=== PATIENT | female | born 1990 ===

== ENCOUNTER 2019-12-22 08:59 | Inpatient (IN) | payer MEDICAID ==
[~2019-12-22] VITALS: Ht 167.6 cm; Wt 68.6 kg
--- NOTE | 2019-12-22 09:04 | NUR ---
THIS IS A 29 YO F BIB EMS FROM [facility] W/ C/O RUQ/R FLANK/BACK PAIN. DENIES N/V/D. PER EMS PT HAS BEEN DX W/ PANCREATITIS AND GALLSTONES. PT IS 2 MONTHS POST . PER EMS PT RECEIVED 1MG DILAUDID, 4MG ZOFRAN, REGLAN AND 1L NS AT FACILITY PRIOR TO TRANSFER, RECEIVED NOTHING IN ROUTE. 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 PT REPORTS PAIN NOW 06/26. VSS, NADN. PT CONNECTED TO MONITORING. RESTING ON GURNEY W/ CALL LIGHT IN REACH AND SIDE RAILS UPX2. PARMINDER FLOWERS AT BEDSIDE FOR ED EVAL.
--- NOTE | 2019-12-22 09:12 | NUR ---
ATTEMPT TO CALL POST FOR BREAST PUMP, NO ANSWER.
--- NOTE | 2019-12-22 09:14 | NUR ---
SPOKE W/ NURSE, WILL BRING BREAST PUMP DOWN.
--- NOTE | 2019-12-22 09:20 | NUR ---
OK TO SPEAK W/ GM (PTS ) [phone] REGARDING UPDATES. GM STATES HE IS ABOUT 3 HOURS AWAY. INFORMED WE WILL CALL HIM IF ANYTHING CHANGES.
--- NOTE | 2019-12-22 09:27 | NUR ---
BREAST PUMP DELIVERED.
[2019-12-22] MEDS ORDERED: PRENATAL PO (09:29)
--- NOTE | 2019-12-22 09:29 | NUR ---
PT REPORTS LAST PO FOOD 12/20 1800, LAST PO DRINK 12/21 0300.
--- NOTE | 2019-12-22 09:40 | NUR ---
ACCORDING TO RECORDS FROM [facility] LIPASE THIS MORNING WAS [phone].
--- NOTE | 2019-12-22 09:43 | NUR ---
US IN ROOM.
--- NOTE | 2019-12-22 10:00 | NUR ---
MRI FORM COMPLETED AND FAXED TO [phone].
--- NOTE | 2019-12-22 10:01 | NUR ---
PT BRADYCARDIC IN THE 40'S DURING US. UPDATED, OK TO PROCEED W/ MRI AT THIS TIME.
--- NOTE | 2019-12-22 10:08 | NUR ---
PT AMBULATED TO THE BR W/ A STEADY GAIT.
--- NOTE | 2019-12-22 10:13 | NUR ---
PT TO MRI.
--- NOTE | 2019-12-22 10:36 | NUR ---
REPORT GIVEN TO JANET MARTINEZ.
[2019-12-22 11:59] VITALS: BP 101/69
[2019-12-22] MEDS ORDERED: HYDROmorphone 1 MG/ML, 1ML INJ IV PRN (12:30)
[2019-12-22] MEDS ORDERED: ONDANSETRON 2MG/ML, 2ML IVPush PRN (12:30)
[2019-12-22] MEDS: SODIUM CHLORIDE 0.9% 1,000 ML IV SCH ×2 (12:34→22:36)
[2019-12-22 13:29] LABS: ALANINE AMINOTRANSFERASE 805 U/L (12-78); ALBUMIN 3.5 g/dL (3.4-5.0); ANION GAP 5 mmol/L (5-15); CALCIUM 8.6 mg/dL (8.5-10.1); CHLORIDE 113 mmol/L (98-107); CREATININE 0.82 mg/dL (0.55-1.02)
[2019-12-22 13:34] LABS: ALKALINE PHOSPHATASE 235 U/L (45-117); BILIRUBIN,TOTAL 0.6 mg/dL (0.2-1.0)
[2019-12-22 19:38] VITALS: BP 97/60
[2019-12-23 00:42] VITALS: BP 105/68
[2019-12-23 04:40] LABS: BASOPHILS # (AUTO) 0.04 x10^3/uL (0-0.1); BASOPHILS % (AUTO) 1 % (0-1); EOSINOPHILS # (AUTO) 0.04 x10^3/uL (0-0.4); EOSINOPHILS % (AUTO) 1 % (1-7); LYMPHOCYTES # (AUTO) 1.45 x10^3/uL (1-3.4); LYMPHOCYTES % (AUTO) 42 % (22-44); MD NO; MEAN CORPUSCULAR HEMOGLOBIN 28.7 pg (27.0-34.8); MEAN CORPUSCULAR HGB CONC 32.8 g/dL (32.4-35.8); MEAN PLATELET VOLUME 8.5 fL (7.4-10.4); MONOCYTES % (AUTO) 9 % (2-9); NEUTROPHILS # (AUTO) 1.63 x10^3/uL (1.8-6.8); NEUTROPHILS % (AUTO) 47 % (42-75); PLATELET COUNT 180 x10^3/uL (130-400); RED BLOOD COUNT 4.15 x10^6/uL (3.82-5.3); RED CELL DISTRIBUTION WIDTH 14.5 % (9.6-15.2)
[2019-12-23 04:51] LABS: ALANINE AMINOTRANSFERASE 583 U/L (12-78); ALBUMIN 3.3 g/dL (3.4-5.0); ANION GAP 7 mmol/L (5-15); CALCIUM 8.1 mg/dL (8.5-10.1); CHLORIDE 113 mmol/L (98-107); CREATININE 0.84 mg/dL (0.55-1.02)
[2019-12-23 04:53] LABS: ALKALINE PHOSPHATASE 204 U/L (45-117); BILIRUBIN,TOTAL 0.7 mg/dL (0.2-1.0); TOTAL PROTEIN 6.5 g/dL (6.4-8.2)
[2019-12-23 06:18] VITALS: BP 104/59
[2019-12-23] MEDS: SODIUM CHLORIDE 0.9% 1,000 ML IV SCH (08:20)
[2019-12-23 11:58] VITALS: BP 103/64
[2019-12-23] MEDS ORDERED: BUPIVACAINE/PF 0.5% ONE (12:27)
[2019-12-23] MEDS ORDERED: EPINEPHRINE 1 MG/ML, 1ML ONE (12:27)
[2019-12-23] MEDS ORDERED: FENTANYL PF 250 MCG/5ML ONE (12:39)
[2019-12-23] MEDS ORDERED: MIDAZOLAM 1 MG/ML, 2ML ONE (12:39)
[2019-12-23] MEDS ORDERED: CHLORHEXIDINE 15 ML UDC ONE (12:52)
[2019-12-23] MEDS ORDERED: CHLORHEXIDINE 15 ML UDC MM ONE (13:00)
[2019-12-23] MEDS ORDERED: PROPOFOL 10 MG/ML, 20ML ONE (13:00)
[2019-12-23] MEDS ORDERED: SUCCINYLCHOLINE 20 MG/ML, 10ML ONE (13:00)
[2019-12-23] MEDS ORDERED: ONDANSETRON 2MG/ML, 2ML ONE (13:00)
[2019-12-23] MEDS ORDERED: ROCURONIUM 10 MG/ML,10ML ONE (13:00)
[2019-12-23] MEDS ORDERED: DEXAMETHASONE 4 MG/ML, 1ML ONE (13:00)
[2019-12-23] MEDS ORDERED: SUGAMMADEX 200 MG/2 ML IVPush ONE (13:00)
[2019-12-23] MEDS ORDERED: KETOROLAC 30 MG/1 ML ONE (13:00)
[2019-12-23] MEDS ORDERED: CEFAZOLIN 1,000 MG ONE (13:00)
[2019-12-23] MEDS ORDERED: OMNIPAQUE 350 MG/ML, 50 ML BOTTLE INJ ONE (13:24)
[2019-12-23] MEDS ORDERED: FENTANYL PF 100 MCG/2ML ONE ×2 (13:35→14:20)
[2019-12-23] MEDS ORDERED: DIPHENHYDRAMINE 50 MG/ML, 1ML IVPush PRN ×2 (14:00→16:00)
[2019-12-23] MEDS ORDERED: PROMETHAZINE 12.5 MG SUPP PR PRN (14:00)
[2019-12-23] MEDS ORDERED: hydrALAzine 20 MG/ML, 1ML IV PRN (14:00)
[2019-12-23] MEDS ORDERED: LABETALOL 5MG/ML, 20ML IV PRN (14:00)
[2019-12-23] MEDS ORDERED: MEPERIDINE/PF 25MG/0.5ML IVPush PRN (14:00)
[2019-12-23] MEDS ORDERED: ALBUTEROL SULFATE 2.5 MG/3 ML NPPB PRN (14:00)
[2019-12-23] MEDS ORDERED: DIAZEPAM 5 MG/ML, 2ML IVPush PRN (14:00)
[2019-12-23] MEDS ORDERED: HYDROmorphone 1 MG/ML, 1ML INJ IVPush PRN (14:00)
[2019-12-23] MEDS ORDERED: MIDAZOLAM 1 MG/ML, 2ML IV PRN (14:00)
[2019-12-23] MEDS ORDERED: OXYcodone 5 MG/5 ML ORAL.SOL UDC PO PRN ×2 (14:00→16:00)
[2019-12-23] MEDS ORDERED: EPHEDRINE 50 MG/ML, 1ML IVPush PRN (14:00)
[2019-12-23] MEDS ORDERED: PROMETHAZINE 25 MG/ML, 1ML IVPush PRN (14:00)
[2019-12-23] MEDS ORDERED: ONDANSETRON 2MG/ML, 2ML IVPush PRN ×2 (14:00→16:00)
[2019-12-23] MEDS ORDERED: OXYcodone 5 MG/5 ML ORAL.SOL UDC ONE (14:20)
[2019-12-23] MEDS ORDERED: ACETAMINOPHEN 650 MG/20.3 ML UDC ONE (14:20)
[2019-12-23] MEDS: FENTANYL PF 100 MCG/2ML IV PRN ×2 (14:25→14:36)
[2019-12-23] MEDS ORDERED: ACETAMINOPHEN 650 MG/20.3 ML UDC PO PRN (14:30)
[2019-12-23] MEDS ORDERED: KETOROLAC 30 MG/1 ML IV PRN (16:00)
[2019-12-23] MEDS ORDERED: LACTATED RINGERS 1,000 ML IV SCH (16:00)
[2019-12-23] MEDS ORDERED: HYDROmorphone 2 MG/ML, 1ML IV PRN (16:00)
[2019-12-23 19:47] VITALS: BP 109/64
[2019-12-23] MEDS ORDERED: ACETAMINOPHEN 650 MG/20.3 ML UDC PO SCH (20:00)
[2019-12-23] MEDS: ACETAMINOPHEN 500 MG TABLET PO SCH (20:31)
[2019-12-24 02:20] VITALS: BP 99/62
[2019-12-24] MEDS: ACETAMINOPHEN 500 MG TABLET PO SCH ×2 (02:23→08:27)
[2019-12-24] MEDS ORDERED: ENOXAPARIN 40 MG/0.4 ML SQ SCH (06:00)
[2019-12-24 07:00] LABS: BASOPHILS # (AUTO) 0.02 x10^3/uL (0-0.1); BASOPHILS % (AUTO) 0 % (0-1); EOSINOPHILS % (AUTO) 0 % (1-7); LYMPHOCYTES # (AUTO) 1.15 x10^3/uL (1-3.4); LYMPHOCYTES % (AUTO) 16 % (22-44); MD NO; MEAN CORPUSCULAR HEMOGLOBIN 28.2 pg (27.0-34.8); MEAN PLATELET VOLUME 8.8 fL (7.4-10.4); MONOCYTES # (AUTO) 0.58 x10^3/uL (0.2-0.8); MONOCYTES % (AUTO) 8 % (2-9); NEUTROPHILS # (AUTO) 5.58 x10^3/uL (1.8-6.8); NEUTROPHILS % (AUTO) 76 % (42-75); PLATELET COUNT 216 x10^3/uL (130-400); RED BLOOD COUNT 4.34 x10^6/uL (3.82-5.3)
[2019-12-24 07:03] VITALS: BP 102/58
[2019-12-24 07:08] LABS: ALBUMIN 3.5 g/dL (3.4-5.0); ANION GAP 9 mmol/L (5-15); CALCIUM 8.6 mg/dL (8.5-10.1); CHLORIDE 109 mmol/L (98-107)
[2019-12-24 07:11] LABS: ALANINE AMINOTRANSFERASE 413 U/L (12-78); ALKALINE PHOSPHATASE 197 U/L (45-117); BILIRUBIN,TOTAL 0.4 mg/dL (0.2-1.0); CREATININE 0.85 mg/dL (0.55-1.02); TOTAL PROTEIN 6.8 g/dL (6.4-8.2)
[2019-12-24 09:53] LABS: C-REACTIVE PROTEIN, QUANT 1.2 mg/dL (0.02-0.49)
[2019-12-24] MEDS ORDERED: ACET500T64 PO (12:08)
[2019-12-24] MEDS ORDERED: OXYC5TAB3 PO (12:55)
[2019-12-24] MEDS ORDERED: IBUP-1222 PO (12:55)
[2019-12-24] MEDS ORDERED: DOCU-131 PO (12:56)
== END 2019-12-24 13:03 | disposition home or self-care (01) | DRG 263 ==
LOC: ED 11:14 → 3N 11:15 → DCLOUNGE 12-24 13:00
PROVIDERS: ADMIT Hospitalist; ATTEND Hospitalist
PROC: BF141ZZ Fluoroscopy of Gallbladder, Bile Ducts and Pancreatic Ducts using Low Osmolar Contrast (ICD-10-PCS; 2019-12-23)
PROC: 0FT44ZZ Resection of Gallbladder, Percutaneous Endoscopic Approach (ICD-10-PCS; principal; 2019-12-23 13:30)
DX: K80.21 Calculus of gallbladder without cholecystitis with obstruction (principal); K85.10 Biliary acute pancreatitis without necrosis or infection; R74.0 Nonspecific elevation of levels of transaminase and lactic acid dehydrogenase [LDH]; K83.8 Other specified diseases of biliary tract; Z86.718 Personal history of other venous thrombosis and embolism; Z03.818 Encounter for observation for suspected exposure to other biological agents ruled out
CPT/HCPCS: 36415; 74181; 74300; 76700; 80053; 83690; 84702; 85025; 86140; 87635; 88304; G0378; J0171; J0690; J1100; J1170; J1885; J2250; J2405; J2704; J3010; Q9967; J0330; J7030; J7120